=== PATIENT | female | born 1990 | race African-American/Black ===

== ENCOUNTER 2020-05-13 11:23 | Emergency (ER) | payer OTHER ==
[~2020-05-13] VITALS: Ht 182.9 cm; Wt 72.0 kg
[2020-05-13] MEDS ORDERED: KETOROLAC 30MG/ML VIAL IM ONE (12:15)
[2020-05-13 12:22] VITALS: BP 130/60
== END 2020-05-13 14:30 | disposition home or self-care (01) ==
LOC: ER 11:23
DX: Z88.0 Allergy status to penicillin (principal); S10.93XA Contusion of unspecified part of neck, initial encounter; S20.219A Contusion of unspecified front wall of thorax, initial encounter; S60.211A Contusion of right wrist, initial encounter; V43.52XA Car driver injured in collision with other type car in traffic accident, initial encounter; Y93.89 Activity, other specified; Y92.488 Other paved roadways as the place of occurrence of the external cause
CPT/HCPCS: 29125; 71045; 73110; 73130; 96372; 99284; J1885